=== PATIENT | male | born 1975 | race Two or more races ===

== ENCOUNTER 2023-12-12 07:37 | Emergency (ER) | payer OTHER ==
[~2023-12-12] VITALS: Ht 182.9 cm; Wt 95.3 kg
[2023-12-12 08:07] VITALS: BP 131/77; TEMP 98.5; O2SAT 99
== END 2023-12-12 12:08 | disposition home or self-care (01) ==
LOC: ER 07:42
DX: Z00.00 Encounter for general adult medical examination without abnormal findings (principal); I10 Essential (primary) hypertension; K21.9 Gastro-esophageal reflux disease without esophagitis; Z87.448 Personal history of other diseases of urinary system; Z87.438 Personal history of other diseases of male genital organs; Z86.59 Personal history of other mental and behavioral disorders; Z59.00 Homelessness unspecified